=== PATIENT | female | born 2000 | race Hispanic/Latino ===

== ENCOUNTER 2025-03-17 20:20 | Emergency (ER) | payer BC ==
[~2025-03-17] VITALS: Ht 154.9 cm; Wt 55.8 kg
[2025-03-17 20:45] LABS: BASOPHILS % 0.5 % (0.0-1.0); EOSINOPHILS % 0.6 % (0.0-6.0); LYMPHOCYTES % 23.9 % (18.0-39.1); MONOCYTES % 7.6 % (4.4-11.3); NEUTROPHILS % 67.3 % (38.7-80.0); RED CELL DISTRIBUTION WIDTH 13.9 % (11.7-14.4)
[2025-03-17] MEDS: ONDANSETRON HCL INJ 2MG/ML 2ML 2 MG/ML VIAL IV STA (20:54)
[2025-03-17] MEDS: SODIUM CHLORIDE 0.9% 1000ML 1,000 ML IV STA (20:54)
[2025-03-17 20:55] LABS: LEUKOCYTE ESTERASE ,URINE NEGATIVE (NEGATIVE); PREGNANCY TEST, URINE NEGATIVE (NEGATIVE); PROTEIN,URINE DIPSTICK NEGATIVE (NEGATIVE); URINE UROBILINOGEN 0.2 mg/dL (0.2 - 1)
[2025-03-17 21:02] LABS: EPITHELIAL CELLS,URINE FEW /LPF; WBC,URINE (MAN) 0-5 /HPF (0-5)
[2025-03-17 21:07] LABS: EST GLOMERULAR FILTRATION RATE 108.0 ML/MIN (>=60)
[2025-03-17] MEDS ORDERED: IOPAMIDOL 370 MG/ML 100 ML INFUS..BTL INJ ONE (21:41)
[2025-03-17] MEDS ORDERED: CEPHALEXIN500 MG PO (23:39)
[2025-03-18] VITALS: PULSE 84; RESP 18; TEMP 98.1; O2SAT 99
== END 2025-03-18 00:05 | disposition home or self-care (01) ==
LOC: ER 20:21
DX: R10.31 Right lower quadrant pain (principal); N83.202 Unspecified ovarian cyst, left side; N83.201 Unspecified ovarian cyst, right side
CPT/HCPCS: 36415; 74177; 76856; 80053; 81001; 81025; 83690; 85025; 93976; 99284; J2405; J7030; Q9967